=== PATIENT | female | born 1985 ===

== ENCOUNTER 2018-01-10 04:34 | Observation (INO) | payer OTHER ==
[2018-01-10] MEDS ORDERED: Famotidine 20mg/50ml Premix IVPB STA (05:34)
--- NOTE | 2018-01-10 05:34 | ED PDOC ---
HPI: Abdomen Time Seen by Provider: 01/10/18 05:10 Chief Complaint (Nursing): Abdominal Pain Chief Complaint (Provider): Abdominal Pain History Per: Patient History/Exam Limitations: no limitations Onset/Duration Of Symptoms: Hrs (x7) Current Symptoms Are (Timing): Still Present Location Of Pain/Discomfort: Epigastric Associated Symptoms: Vomiting (x3 episodes). denies: Fever, Nausea, Diarrhea Additional Complaint(s): 32 year old female with a past medical history of gastritis presents to the ED with complaints of constant epigastric pain associated with three episodes of non-bloody, non-bilious vomiting, onset seven hours ago. Patient reports of a history of Gastritis in the past of which she does not take medications for. Denies diarrhea, medications for abdominal pain relief, and fever. PMD: None Past Medical History Reviewed: Historical Data, Nursing Documentation, Vital Signs Vital Signs: Last Vital Signs Temp 98.2 F 01/10/18 18:05 Pulse 81 01/10/18 18:05 Resp 20 01/10/18 18:05 BP 112/65 01/10/18 18:05 Pulse Ox 97 01/10/18 18:05 - Medical History PMH: Gastritis - Surgical History Surgical History: No Surg Hx - Family History Family History: States: Unknown Family Hx - Home Medications Home Medications: Ambulatory Orders Medication Instructions Recorded No Known Home Med 01/10/18 - Allergies Allergies/Adverse Reactions: Allergies Allergy/AdvReac Type Severity Reaction Status Date / Time No Known Allergies Allergy Verified 01/10/18 05:15 Review of Systems ROS Statement: Except As Marked, All Systems Reviewed And Found Negative Constitutional: Negative for: Fever Gastrointestinal: Positive for: Vomiting (3 episodes of non-bloody, non-bilious vomiting), Abdominal Pain (constant epigastric) Physical Exam - Reviewed Nursing Documentation Reviewed: Yes Vital Signs Reviewed: Yes - Physical Exam Appears: Positive for: No Acute Distress, Uncomfortable Head Exam: Positive for: ATRAUMATIC, NORMOCEPHALIC Skin: Positive for: Normal Color, Warm, Dry Eye Exam: Positive for: Normal appearance, EOMI, PERRL ENT: Positive for: Normal ENT Inspection Neck: Positive for: Normal, Painless ROM, Supple Cardiovascular/Chest: Positive for: Regular Rate, Rhythm. Negative for: Murmur Respiratory: Positive for: Normal Breath Sounds. Negative for: Respiratory Distress Gastrointestinal/Abdominal: Positive for: Normal Exam, Soft, Tenderness ( epigastric tenderness) Back: Positive for: Normal Inspection. Negative for: L CVA Tenderness, R CVA Tenderness, Vertebral Tenderness Extremity: Positive for: Normal ROM. Negative for: Pedal Edema, Deformity Neurologic/Psych: Positive for: Alert, Oriented. Negative for: Motor/Sensory Deficits - Laboratory Results Result Diagrams: 01/10/18 06:25 01/10/18 06:25 - ECG O2 Sat by Pulse Oximetry: 99 (RA) Pulse Ox Interpretation: Normal Medical Decision Making Medical Decision Making: Time: 523 Impression: abdominal pain, epigastric pain Differentials include but not limited to acute colitis, pancreatitis, gastritis Rule out Plan: -- CMP -- Lipase -- Test -- ED Urine Dipstick -- CBC with differentials -- Sodium Chloride IV 1000 mls/hr -- Pepcid 20 mg IVP -- Zofran ODT 4 mg PO -- IV Insertion -- [Abdomen limited (GB included)] US Scribe Attestation: Documented by Binta Umana, acting as a scribe for Dr. Reza Mcpherson MD. Provider Scribe Attestation: All medical record entries made by the Scribe were at my direction and personally dictated by me. I have reviewed the chart and agree that the record accurately reflects my personal performance of the history, physical exam, medical decision making, and the department course for this patient. I have also personally directed, reviewed, and agree with the discharge instructions and disposition. Disposition - Clinical Impression Clinical Impression: Acute appendicitis - Patient ED Disposition Is Patient to be Admitted: Transfer of Care Counseled Patient/Family Regarding: Studies Performed, Diagnosis - Disposition Disposition: Transfer of Care Disposition Time: 07:00 Condition: STABLE Patient Signed Over To: Daniel Azul III
[2018-01-10] MEDS ORDERED: Sodium Chloride 0.9% 1,000 ML IV STA (05:36)
[2018-01-10] MEDS ORDERED: Famotidine 20mg/50ml 20 MG/50 ML BAG IVPB ONE (06:11)
[2018-01-10 06:29] LABS: BASO % 0.2 % (0.0-2.0); HEMOGLOBIN 13.7 g/dL (12.0-16.0); LYMPH % 6.1 % (20.0-40.0); MEAN CELL VOLUME 86.8 fl (81.0-99.0); MEAN CORPUSCULAR HEMOGLOBIN 28.6 pg (27.0-31.0); MEAN PLATELET VOLUME 8.8 fl (7.2-11.7); MONO # 0.6 K/uL (0.0-0.8); MONO % 3.8 % (0.0-10.0); NEUT # 14.6 K/uL (1.8-7.0); NEUT % 89.9 % (50.0-75.0); NRBC % 0.2 % (0.0-0.0); PLATELET COUNT 270 K/uL (130-400); RBC 4.79 Mil/uL (3.80-5.20); WHITE BLOOD COUNT 16.2 K/uL (4.8-10.8)
[2018-01-10 06:40] LABS: ALB/GLOB RATIO 1.2 (1.0-2.1); ALBUMIN 4.6 g/dL (3.5-5.0); ALT/SGPT 35 U/L (9-52); AST/SGOT 25 U/L (14-36); BLOOD UREA NITROGEN 11 mg/dl (7-17); CALCIUM 9.3 mg/dL (8.4-10.2); GFR AFRICAN-AMERICAN > 60; GFR NON-AFRICAN AMERICAN > 60; LIPASE 35 U/L (23-300)
--- NOTE | 2018-01-10 07:05 | ED PDOC ---
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 : [id number] Patient Name / ID : ESVIN HOLLEY / [id number] Exam Date : 01/10/2018 10:07:31 ( Approved ) Study Comment : Sex / Age : F / 32Y Creator : Robin Avalos MD Dictator : Robin Avalos MD Pattern Duplicator : Disability Coordinator : Robin Avalos MD Approver2 : Report Date : 01/10/2018 10:38:52 My Comment : PROCEDURE: CT Abdomen and Pelvis with contrast HISTORY: R sided abd pain COMPARISON: None. TECHNIQUE: Contrast dose: 90 mL Omnipaque 300 Radiation dose: Total exam DLP = 1143.6 mGy-cm. This CT exam was performed using one or more of the following dose reduction techniques: Automated exposure control, adjustment of the mA and/or kV according to patient size, and/or use of iterative reconstruction technique. FINDINGS: LOWER THORAX: Unremarkable. LIVER: Unremarkable. No gross lesion or ductal dilatation. GALLBLADDER AND BILE DUCTS: Unremarkable. PANCREAS: Unremarkable. No gross lesion or ductal dilatation. SPLEEN: Unremarkable. ADRENALS: Unremarkable. No mass. KIDNEYS AND URETERS: Nonobstructive 3 mm right interpolar calculus. No hydronephrosis. No solid mass. VASCULATURE: Unremarkable. No aortic aneurysm. BOWEL: Unremarkable. No obstruction. No gross mural thickening. APPENDIX: Dilated appendix up to 11 mm with thick enhancing murillo and periappendiceal stranding. PERITONEUM: Unremarkable. No free fluid. No free air. LYMPH NODES: Unremarkable. No enlarged lymph nodes. BLADDER: Unremarkable. REPRODUCTIVE: Unremarkable. BONES: No acute fracture. OTHER FINDINGS: None. IMPRESSION: Dilated appendix up to 11 mm with thick enhancing murillo and periappendiceal stranding most compatible with acute appendicitis. Findings conveyed to Dr. Azul by Dr. Perez at 10:37 a.m. on 01/10/2018. Disposition - Clinical Impression Clinical Impression: Acute appendicitis - POA Present On Arrival: None Core Measure Indicators: Code Heart - Disposition Disposition: Hospitalized as Observation Patient Disposition Time: 10:41 Forms: [employer] ([place])
--- NOTE | 2018-01-10 09:01 | US ---
HISTORY: epigastric pain COMPARISON: None. TECHNIQUE: Sonographic evaluation of the right upper quadrant of the abdomen. FINDINGS: LIVER: Measures 12.8 cm in length. Normal echogenicity of the liver parenchyma. No mass. No intrahepatic bile duct dilatation. GALLBLADDER: Unremarkable. No gallstones. COMMON BILE DUCT: Measures 2 mm. No stones. No dilatation. PANCREAS: Not well visualized RIGHT KIDNEY: Measures 9.9 x 3.6 x 4.7 cm in length. Normal echogenicity. No calculus, mass, or hydronephrosis. AORTA: No aneurysmal dilatation. IVC: Unremarkable. OTHER FINDINGS: None . IMPRESSION: Unremarkable right upper quadrant ultrasound
[2018-01-10] MEDS ORDERED: Sodium Chloride 0.9% 50 ML IV ONE (09:58)
[2018-01-10] MEDS ORDERED: Iohexol 300 100 ML IJ ONE (09:58)
[2018-01-10] MEDS ORDERED: Piperacillin/Tazobact 4.5 GM in Sodium Chloride 0.9% 100 ML IVPB STA (10:39)
--- NOTE | 2018-01-10 10:40 | CT ---
PROCEDURE: CT Abdomen and Pelvis with contrast HISTORY: R sided abd pain COMPARISON: None. TECHNIQUE: Contrast dose: 90 mL Omnipaque 300 Radiation dose: Total exam DLP = 1143.6 mGy-cm. This CT exam was performed using one or more of the following dose reduction techniques: Automated exposure control, adjustment of the mA and/or kV according to patient size, and/or use of iterative reconstruction technique. FINDINGS: LOWER THORAX: Unremarkable. LIVER: Unremarkable. No gross lesion or ductal dilatation. GALLBLADDER AND BILE DUCTS: Unremarkable. PANCREAS: Unremarkable. No gross lesion or ductal dilatation. SPLEEN: Unremarkable. ADRENALS: Unremarkable. No mass. KIDNEYS AND URETERS: Nonobstructive 3 mm right interpolar calculus. No hydronephrosis. No solid mass. VASCULATURE: Unremarkable. No aortic aneurysm. BOWEL: Unremarkable. No obstruction. No gross mural thickening. APPENDIX: Dilated appendix up to 11 mm with thick enhancing murillo and periappendiceal stranding. PERITONEUM: Unremarkable. No free fluid. No free air. LYMPH NODES: Unremarkable. No enlarged lymph nodes. BLADDER: Unremarkable. REPRODUCTIVE: Unremarkable. BONES: No acute fracture. OTHER FINDINGS: None. IMPRESSION: Dilated appendix up to 11 mm with thick enhancing murillo and periappendiceal stranding most compatible with acute appendicitis. Findings conveyed to Dr. Azul by Dr. Perez at 10:37 a.m. on 01/10/2018.
[2018-01-10] MEDS: Lactated Ringer's 1,000 ML IV SCH ×3 (12:25→20:00)
[2018-01-10] MEDS ORDERED: Midazolam 2 MG/2 ML VIAL ONE (12:37)
[2018-01-10] MEDS ORDERED: Propofol 10 mg/ml Inj (20 ML) ONE (12:37)
[2018-01-10] MEDS ORDERED: Succinylcholine 200 mg/10 ml Inj IV ONE (12:37)
--- NOTE | 2018-01-10 12:39 | CP.PCM.HP ---
History of Present Illness - History of Present Illness History of Present Illness: 32F with PMHx of gastritis presents to [facility] ED with complaints of abdominal pain. Patient reports abdominal pain began yesterday afternoon. She describes pain began along her epigastrium and paraumbilical region and throughout time it began to radiates towards right flank region. Patient admits to feeling nauseous and reports several bouts of non-bloody emesis. She denies fever/chills , chest pain, SOB, dysuria. PMHx: as stated above PSurgHx: Csection Allergies: NKDA Fam Hx: non-contributory Present on Admission - Present on Admission Any Indicators Present on Admission: No Review of Systems - Review of Systems Review of Systems: 12 pt ROS unremarkablem except as stated in HPI Past Patient History - Past Social History Smoking Status: Never Smoked - CARDIAC Hx Cardiac Disorders: No - PULMONARY Hx Respiratory Disorders: No - NEUROLOGICAL Hx Neurological Disorder: No - HEENT Hx HEENT Problems: No - RENAL Hx Chronic Kidney Disease: No - ENDOCRINE/METABOLIC Hx Endocrine Disorders: No - HEMATOLOGICAL/ONCOLOGICAL Hx Blood Disorders: No - INTEGUMENTARY Hx Dermatological Problems: No - MUSCULOSKELETAL/RHEUMATOLOGICAL Hx Musculoskeletal Disorders: No - GASTROINTESTINAL Hx Gastritis: Yes - GENITOURINARY/GYNECOLOGICAL Hx Genitourinary Disorders: No - PSYCHIATRIC Hx Psychophysiologic Disorder: No - SURGICAL HISTORY Hx Section: Yes - ANESTHESIA Hx Anesthesia: Yes Hx Anesthesia Reactions: No Hx Malignant Hyperthermia: No Meds Allergies/Adverse Reactions: Allergies Allergy/AdvReac Type Severity Reaction Status Date / Time No Known Allergies Allergy Verified 01/10/18 05:15 Physical Exam - Constitutional Appears: No Acute Distress - Head Exam Head Exam: NORMOCEPHALIC - Eye Exam Eye Exam: Normal appearance - ENT Exam ENT Exam: Mucous Membranes Moist - Respiratory Exam Respiratory Exam: NORMAL BREATHING PATTERN - Cardiovascular Exam Cardiovascular Exam: +S1, +S2 - GI/Abdominal Exam GI & Abdominal Exam: Rebound, Soft, Tenderness. absent: Distended, Firm, Guarding, Hernia, Rigid - Neurological Exam Neurological exam: Alert, Oriented x3 - Psychiatric Exam Psychiatric exam: Normal Mood - Skin Skin Exam: Dry, Intact, Warm Results - Vital Signs Recent Vital Signs: Last Vital Signs Temp 98.9 F 01/10/18 12:32 Pulse 88 01/10/18 12:32 Resp 18 01/10/18 12:32 BP 118/62 01/10/18 12:32 Pulse Ox 100 01/10/18 12:32 - Labs Result Diagrams: 01/10/18 06:25 01/10/18 06:25 Labs: Laboratory Results - last 24 hr 01/10/18 01/10/18 06:25 06:25 WBC 16.2 H RBC 4.79 Hgb 13.7 Hct 41.5 MCV 86.8 MCH 28.6 MCHC 33.0 RDW 13.0 Plt Count 270 MPV 8.8 Neut % (Auto) 89.9 H Lymph % (Auto) 6.1 L [place] % (Auto) 3.8 Eos % (Auto) 0.0 Baso % (Auto) 0.2 Neut # (Auto) 14.6 H Lymph # (Auto) 1.0 [place] # (Auto) 0.6 Eos # (Auto) 0.0 Baso # (Auto) 0.0 Sodium 141 Potassium 4.0 Chloride 105 Carbon Dioxide 20 L Anion Gap 20 BUN 11 Creatinine 0.6 L Est GFR ( Amer) > 60 Est GFR (Non-Af Amer) > 60 Random Glucose 139 H Calcium 9.3 Total Bilirubin 0.9 AST 25 ALT 35 Alkaline Phosphatase 82 Total Protein 8.5 H Albumin 4.6 Globulin 3.9 Albumin/Globulin Ratio 1.2 Lipase 35 Assessment & Plan - Assessment and Plan (Free Text) Assessment: 32F with acute appendicitis Plan: OR for laparoscopic appendectomy possible open Consent in chart NPO IVF ABx Analgesic/Anti-emetic SCDs D/w Dr. Monroe Barbour PGY2
[2018-01-10 12:42] LABS: LYMPHOCYTE 4 % (20-50); MONOCYTE 4 % (0-10); NEUTROPHIL 92 % (42-75); PLATELET ESTIMATE NORMAL (NORMAL); TOTAL CELLS COUNTED 100
[2018-01-10] MEDS ORDERED: Rocuronium 10 mg/ml (5 ml) ONE (12:58)
[2018-01-10] MEDS ORDERED: Dexamethasone 4 mg/1 ml IVP PRN (13:05)
[2018-01-10] MEDS ORDERED: HYDROmorphone 0.5 mg/0.5 ml ISec IVP PRN (13:05)
[2018-01-10] MEDS ORDERED: Neostigmine 1:1000 (1 mg/ml) Inj ONE (13:09)
[2018-01-10] MEDS ORDERED: Lactated Ringer's 1,000 ML IV ONE ×2 (13:19→13:46)
--- NOTE | 2018-01-10 14:20 | PCM.SURG1 ---
Surgeon's Initial Post Op Note - Surgeon's Notes Surgeon: Rosalina Childress Printing Mechanist: Shira Camarillo Type of Anesthesia: General Endo Anesthesia Administered By: Duane Carrillo Pre-Operative Diagnosis: appendicitis Operative Findings: inflamed retrocecal appendix Post-Operative Diagnosis: appendicitis Operation Performed: laparoscopic appendectomy Specimen/Specimens Removed: appendix Estimated Blood Loss: EBL {In ML}: 10 Blood Products Given: N/A Drains Used: No Drains Post-Op Condition: Good Date of Surgery/Procedure: 01/10/18 Time of Surgery/Procedure: 14:19
[2018-01-10] MEDS ORDERED: Piperacillin/Tazobact 3.375 GM in Sodium Chloride 0.9% 100 ML IVPB SCH (16:00)
--- NOTE | 2018-01-10 16:35 | OP ---
PROCEDURE DATE: 01/10/2018 SURGEON: Wilfredo Childress MD OPERATIONAL REVIEW SERGEANT: Dr. Camarillo. ANESTHESIA: General. ANESTHESIOLOGIST: Dr. Carrillo. PREOPERATIVE DIAGNOSIS: Appendicitis. POSTOPERATIVE DIAGNOSIS: Appendicitis. PROCEDURE: Laparoscopic appendectomy. DESCRIPTION OF OPERATION: With the patient in the supine position under adequate general anesthesia, the abdomen was prepped and draped in the usual sterile manner. Veress needle puncture was performed at the umbilicus with insufflation to 15 cm water pressure of CO2 and a 5-mm laparoscopic trocar was inserted via an infraumbilical incision. Examination of the abdomen revealed some adhesions to the left lower quadrant and a 5-mm trocar was inserted slightly above the umbilicus in the left upper quadrant under direct vision. Also under direct vision. a 12-mm trocar was inserted in the right lower quadrant. The appendix was identified beginning at the cecum and extending along the right gutter in a retrocecal position. There appeared to be acute inflammation adhering the appendix to the right gutter and the surrounding structures. The appendix was grasped and gently freed from the right gutter. The mesenteric window was dissected and the appendix was divided close to the cecum using an Endo-FIDEL stapler. The mesentery was then freed and the mesentery was divided with two additional passes of the Endo-FIDEL stapler. The stump was examined for hemostasis. The appendix was placed in a specimen retrieval bag and removed via the 12-mm port site. The right gutter was suctioned. The pneumoperitoneum was released and the trocars were removed. The 12-mm port site was closed with a fascial suture of 0 Vicryl. All incisions were closed with 4-0 Monocryl subcuticular sutures, and Dermabond. Dry sterile dressings were applied. The patient tolerated the procedure well and transferred to recovery room in stable condition. Estimated blood loss for the procedure was 10 mL. Wilfredo Childress MD [facility]
[2018-01-10] MEDS ORDERED: Oxycodone/Acetaminophen 5/325 mg Tab PO PRN (22:13)
[2018-01-11 01:07] VITALS: RESP 18
[2018-01-11] MEDS: Lactated Ringer's 1,000 ML IV SCH ×2 (01:08→08:19)
[2018-01-11 05:25] VITALS: O2SAT 98
[2018-01-11 07:56] LABS: BASO % 0.3 % (0.0-2.0); EOS % 0.3 % (0.0-4.0); HEMOGLOBIN 12.5 g/dL (12.0-16.0); LYMPH # 2.2 K/uL (1.0-4.3); LYMPH % 17.7 % (20.0-40.0); MEAN CELL VOLUME 86.1 fl (81.0-99.0); MEAN CORPUSCULAR HEMOGLOBIN 29.1 pg (27.0-31.0); MEAN CORPUSCULAR HGB CONC 33.8 g/dL (33.0-37.0); MEAN PLATELET VOLUME 8.6 fl (7.2-11.7); MONO # 1.2 K/uL (0.0-0.8); MONO % 9.8 % (0.0-10.0); NEUT # 8.8 K/uL (1.8-7.0); NEUT % 71.9 % (50.0-75.0); RBC 4.3 Mil/uL (3.80-5.20); RED CELL DISTRIBUTION WIDTH 13.4 % (11.5-14.5); WHITE BLOOD COUNT 12.2 K/uL (4.8-10.8)
[2018-01-11 08:09] VITALS: BP 108/68; PULSE 64; TEMP 98.3
[2018-01-11 08:10] LABS: BLOOD UREA NITROGEN 9 mg/dl (7-17); CALCIUM 9.1 mg/dL (8.4-10.2); GFR AFRICAN-AMERICAN > 60; GFR NON-AFRICAN AMERICAN > 60
[2018-01-11] MEDS ORDERED: Pantoprazole 40 mg EC Tab PO SCH (09:00)
--- NOTE | 2018-01-11 12:17 | CP.PCM.DIS ---
Provider - Provider Date of Admission: 01/10/18 10:47 Attending physician: Wilfredo Childress MD Primary care physician: Dr. Childress Time Spent in preparation of Discharge (in minutes): 30 Hospital Course - Lab Results Lab Results: Most Recent Lab Values WBC 12.2 K/uL (4.8-10.8) H 01/11/18 07:39 RBC 4.30 Mil/uL (3.80-5.20) 01/11/18 07:39 Hgb 12.5 g/dL (12.0-16.0) 01/11/18 07:39 Hct 37.0 % (34.0-47.0) 01/11/18 07:39 MCV 86.1 fl (81.0-99.0) 01/11/18 07:39 MCH 29.1 pg (27.0-31.0) 01/11/18 07:39 MCHC 33.8 g/dL (33.0-37.0) 01/11/18 07:39 RDW 13.4 % (11.5-14.5) 01/11/18 07:39 Plt Count 257 K/uL (130-400) 01/11/18 07:39 MPV 8.6 fl (7.2-11.7) 01/11/18 07:39 Neut % (Auto) 71.9 % (50.0-75.0) 01/11/18 07:39 Lymph % (Auto) 17.7 % (20.0-40.0) L 01/11/18 07:39 [place] % (Auto) 9.8 % (0.0-10.0) 01/11/18 07:39 Eos % (Auto) 0.3 % (0.0-4.0) 01/11/18 07:39 Baso % (Auto) 0.3 % (0.0-2.0) 01/11/18 07:39 Neut # (Auto) 8.8 K/uL (1.8-7.0) H 01/11/18 07:39 Lymph # (Auto) 2.2 K/uL (1.0-4.3) 01/11/18 07:39 [place] # (Auto) 1.2 K/uL (0.0-0.8) H 01/11/18 07:39 Eos # (Auto) 0.0 K/uL (0.0-0.7) 01/11/18 07:39 Baso # (Auto) 0.0 K/uL (0.0-0.2) 01/11/18 07:39 Neutrophils % (Manual) 92 % (42-75) H 01/10/18 06:25 Lymphocytes % (Manual) 4 % (20-50) L 01/10/18 06:25 Monocytes % (Manual) 4 % (0-10) 01/10/18 06:25 Platelet Estimate Normal (NORMAL) 01/10/18 06:25 RBC Morphology Normal (NORMAL) 01/10/18 06:25 Sodium 141 mmol/l (132-148) 01/11/18 07:39 Potassium 3.8 MMOL/L (3.6-5.0) 01/11/18 07:39 Chloride 106 mmol/L (98-107) 01/11/18 07:39 Carbon Dioxide 24 mmol/L (22-30) 01/11/18 07:39 Anion Gap 15 (10-20) 01/11/18 07:39 BUN 9 mg/dl (7-17) 01/11/18 07:39 Creatinine 0.6 mg/dl (0.7-1.2) L 01/11/18 07:39 Est GFR ( Amer) > 60 01/11/18 07:39 Est GFR (Non-Af Amer) > 60 01/11/18 07:39 Random Glucose 99 mg/dL (65-105) 01/11/18 07:39 Calcium 9.1 mg/dL (8.4-10.2) 01/11/18 07:39 Total Bilirubin 0.9 mg/dl (0.2-1.3) 01/10/18 06:25 AST 25 U/L (14-36) 01/10/18 06:25 ALT 35 U/L (9-52) 01/10/18 06:25 Alkaline Phosphatase 82 U/L (38-126) 01/10/18 06:25 Total Protein 8.5 G/DL (6.3-8.2) H 01/10/18 06:25 Albumin 4.6 g/dL (3.5-5.0) 01/10/18 06:25 Globulin 3.9 gm/dL (2.2-3.9) 01/10/18 06:25 Albumin/Globulin Ratio 1.2 (1.0-2.1) 01/10/18 06:25 Lipase 35 U/L (23-300) 01/10/18 06:25 - Hospital Course Hospital Course: 32 year old female PMHx gastritis presented to [facility] ED on 01/10/18 c/o abdominal pain x3 days along with non-bloody, non-bilious vomiting; pt was found to have acute appendicitis. Patient was taken to OR for laparoscopic appendectomy. Patient had an uneventful post-operative course in house and will be discharged home. Patient is to follow up with Dr. Childress in 10-14 days at general surgery clinic. Discharge Exam - Head Exam Head Exam: ATRAUMATIC, NORMOCEPHALIC - Eye Exam Eye Exam: Normal appearance Pupil Exam: NORMAL ACCOMODATION, PERRL - ENT Exam ENT Exam: Mucous Membranes Moist - Neck Exam Neck exam: Full Rom - Respiratory Exam Respiratory Exam: NORMAL BREATHING PATTERN. absent: Respiratory Distress - Cardiovascular Exam Cardiovascular Exam: REGULAR RHYTHM - GI/Abdominal Exam GI & Abdominal Exam: Soft, Tenderness. absent: Distended, Firm, Guarding - Extremities Exam Extremities exam: full ROM - Neurological Exam Neurological exam: Alert, Oriented x3 - Psychiatric Exam Psychiatric exam: Normal Affect, Normal Mood - Skin Skin Exam: Dry, Intact, Normal Color Discharge Plan - Follow Up Plan Condition: STABLE Disposition: HOME/ ROUTINE Patient education suggested?: Yes Instructions: Appendectomy, Laparoscopic Surgery (DC) Additional Instructions: Follow up with in 10-14days hacer jason con la cirujana dentro 10-14 faria - Ibuprofen OTC as directed, as needed for pain. Referrals: Wilfredo Childress MD [Staff Provider] -
== END 2018-01-11 10:02 | disposition home or self-care (01) ==
LOC: H.ER 04:34 → H.ERHOLD 10:47 → H.MEDSURG1 15:41
PROVIDERS: ADMIT Specialist; ATTEND Specialist
DX: K35.80 Unspecified acute appendicitis (principal); Z98.891 History of uterine scar from previous surgery
CPT/HCPCS: 36415; 44970; 74177; 76705; 80048; 80053; 81025; 83690; 85025; 88304; 96360; 96365; 99285; G0378; J0330; J1100; J1170; J2250; J2543; J2704; J2710; J2765; J3010; J7030; J7120; Q9967